=== PATIENT | female | born 1960 | race African-American/Black ===

== ENCOUNTER → 2021-05-25 | Outpatient (CLI) | payer MEDICARE ==
--- NOTE | 2021-05-25 16:25 | BD ---
EXAMINATION TYPE: Axial Bone Density DATE OF EXAM: 05/25/2021 COMPARISON: NONE CLINICAL HISTORY: 60 YR OLD FEMALE.....ICD-10.CODE: Z78.0 MENOPAUSAL. Height: 63.2 Weight: 150 FRAX RISK QUESTIONS: Glucocorticoids (More than 3mos): YES (Ex: prednisone, prednisolone, methylprednisolone, dexamethasone, and hydrocortisone). Rheumatoid Arthritis: YES Current Tobacco Use: YES RISK FACTORS HISTORY OF: Diet low in dairy products/other sources of calcium: YES Postmenopausal woman: YES, AT ABOUT 52 Hyperparathyroidism: NO Adrenal Insufficiency: NO MEDICATIONS: Prednisone or other steroids: YES, DAILY, FOR ABOUT 8 YRS Additional Medications: COLON CA, CHEMO TREATMENT, VIT D IN HER MULTIVITAMIN Additional History: COLON CA, RA, EXAM MEASUREMENTS: Bone mineral densitometry was performed using the [employer] System. Bone mineral density as measured about the Lumbar spine is: ----- L1-L4(G/cm2): 1.334 T Score Values are as follows: ----- L1: 0.7 ----- L2: 0.6 ----- L3: 1.6 ----- L4: 1.8 ----- L1-L4: 1.3 Bone mineral density FIRST DEXA SCAN.....BASELINE STUDY Bone mineral density about the R hip (g/cm2): 0.959 Bone mineral density about the L hip (g/cm2): 0.936 T Score values are as follows: -----R Neck: 0.4 -----L Neck: -0.2 -----R Total: -0.4 -----L Total: -0.6 Bone mineral density BASELINE STUDY FRAX%s: THERE IS A 5.7% CHANCE FOR A MAJOR OSTEOPOROTIC FX AND A 0.3% FOR HIP....PROBABILITY FOR FX IN 10 YRS TIME IMPRESSION: Normal (Values between +1 and -1 indicate normal bone mass). Consider repeating this study in 5 year s or sooner if there is some new clinical indication. NOTE: T-SCORE=SD OF THE YOUNG ADULT MEAN.
== END | disposition home or self-care (01) ==
LOC: RADBDWWP 09:02
PROVIDERS: ATTEND Family Medicine
DX: Z78.0 Asymptomatic menopausal state (principal)
CPT/HCPCS: 77080

== ENCOUNTER → 2022-03-21 | Outpatient (CLI) | payer MEDICARE ==
--- NOTE | 2022-03-21 13:35 | XR ---
EXAMINATION TYPE: XR chest 2V DATE OF EXAM: 03/21/2022 COMPARISON: NONE TECHNIQUE: PA and lateral views submitted. HISTORY: History of positive TB test FINDINGS: The lungs are clear and there is no pneumothorax, pleural effusion, or focal pneumonia. Cardiomegaly noted. Mild hypertrophic change of the spine. No overt failure. IMPRESSION: 1. Cardiomegaly
== END | disposition home or self-care (01) ==
LOC: RADXRMAIN 13:17
PROVIDERS: ATTEND Family Medicine
DX: Z11.1 Encounter for screening for respiratory tuberculosis (principal); I51.7 Cardiomegaly
CPT/HCPCS: 71046

== ENCOUNTER 2023-07-19 10:09 | Day surgery (SDC) | payer MEDICARE ==
[2023-07-18 12:14] VITALS: BMI 25.0
[~2023-07-19 10:09] MED LIST: LACTATED RINGERS 1,000 ML IV SCH
[2023-07-19] MEDS ORDERED: LACTATED RINGERS 1,000 ML IV ONE (10:32)
[2023-07-19 10:45] VITALS: TEMP 97.1
[2023-07-19] MEDS ORDERED: PROPOFOL 10 MG/ML 20 ML VIAL IV ONE (11:44)
--- NOTE | 2023-07-19 12:04 | P.PCN ---
Date of Procedure: 07/19/23 Procedure(s) Performed: BRIEF HISTORY: Patient is a 62-year-old pleasant -[place] female scheduled for an elective colonoscopy as a part of surveillance of prior history of colon cancer diagnosed in 2010. Last colonoscopy was 4 years ago. PROCEDURE PERFORMED: Colonoscopy. PREOPERATIVE DIAGNOSIS: History of colon cancer in 2010 IV sedation per Anesthesia. PROCEDURE: After informed consent was obtained, the patient, was brought into the endoscopy unit. IV sedation was administered by Anesthesia under continuous monitoring. Digital rectal examination was normal. Initially the Olympus CF-160 flexible video pediatric colonoscope was then inserted in the rectum, gradually advanced into the right colon with moderate to severe difficulty. Careful examination was performed. ileocolic anastomosis was visualized that appeared normal. The cause of the transverse colon, descending colon, sigmoid colon, and rectum appeared normal. Scattered sigmoid diverticulosis. Retroflexion was performed in the rectum and small internal hemorrhoids were seen. The patient tolerated the procedure well. IMPRESSION: Normal-appearing colon from rectum to right colon with ileocolic anastomosis was visualized and appeared normal. Scattered sigmoid diverticulosis. Small internal hemorrhoids. RECOMMENDATIONS: Findings of this examination were discussed with the patient as well as a family. She was advised to have a repeat colonoscopy in 3 years..
[2023-07-19 12:47] VITALS: BP 123/86; PULSE 60; RESP 20
== END 2023-07-19 12:43 | disposition home or self-care (01) ==
LOC: ORWHC2ENDO 10:09
PROVIDERS: ATTEND Internal Medicine Gastroenterology
DX: C18.0 Malignant neoplasm of cecum (principal); K57.30 Diverticulosis of large intestine without perforation or abscess without bleeding; K64.8 Other hemorrhoids; M06.9 Rheumatoid arthritis, unspecified; F17.210 Nicotine dependence, cigarettes, uncomplicated; Z88.5 Allergy status to narcotic agent; Z79.02 Long term (current) use of antithrombotics/antiplatelets; Z79.899 Other long term (current) drug therapy; Z98.890 Other specified postprocedural states; Z85.038 Personal history of other malignant neoplasm of large intestine
CPT/HCPCS: J2704; G0105; 45378

== ENCOUNTER → 2024-03-05 | Outpatient (CLI) | payer MEDICARE ==
--- NOTE | 2024-03-28 20:30 | CTL ---
Site ID synapse default Patient Mahi Haddad ID [id number] Age/Gender: 63Y, F Order # N/A Procedure CT LOW DOSE LUNG CANCER SCREENING Date 03/05/2024 11:35:00 AM EXAMINATION TYPE: CT Low Dose Lung DATE OF EXAM ORDERED: 03/13/2024 HISTORY: Personal history of nicotine dependence, 30 pack-year history, current smoker. Lung cancer s creening CT DLP: 82.[address] CTDI: 2.30 mGy Automated exposure control for dose reduction was used. SCREENING VISIT: First screening visit COMPARISON: No direct comparisons TECHNIQUE: Low dose computed tomography scan was performed through the chest at 1 mm thick sections a nd reconstructed images in multiple planes at 1 mm and [address] DIAGNOSTIC QUALITY: Satisfactory FINDINGS: Nodules: No clinically significant pulmonary nodules. LUNGS: COPD: Severity: None Fibrosis: Severity: None Lymph nodes: None Other findings: None RIGHT PLEURAL SPACE: Effusion: None Calcification: None Thickening: None Pneumothorax: None LEFT PLEURAL SPACE: Effusion: None Calcification: None Thickening: None Pneumothorax: None HEART: Heart Size: Mildly Enlarged Coronary Calcification: Small Pericardial Effusion: None OTHER FINDINGS: Upper abdomen: Multiple cysts identified within the liver with largest visualized measuring up to 6.7 cm within the left hepatic lobe. Bony thorax: None Supraclavicular region: None Other: None IMPRESSION: No clinically significant pulmonary nodules. CT LUNG RAD AND CT CHEST RECOMMENDATION: Lung-Rad 1 Negative: Continue annual screening with LDCT in 12 months. S Modifier (other clinically significant findings): None
== END | disposition home or self-care (01) ==
LOC: RADCTMAIN 11:22
PROVIDERS: ATTEND Family Medicine
DX: Z12.2 Encounter for screening for malignant neoplasm of respiratory organs (principal); F17.210 Nicotine dependence, cigarettes, uncomplicated
CPT/HCPCS: 71271

== ENCOUNTER → 2025-02-18 | Outpatient (CLI) | payer MEDICARE ==
--- NOTE | 2025-02-18 19:33 | MM ---
Reason for Exam: Screening (asymptomatic). Last mammogram was performed 1 year(s) and 10 month(s) ago. Patient History: Menarche at age 13. First Full-Term at age 23. Hysterectomy at age 46. Postmenopausal. Previous chemotherapy at age 50. Maternal grandmother had ovarian cancer. Risk Values: Lisa 5 year model risk: 1.6%. NCI Lifetime model risk: 6.2%. Prior Study Comparison: 04/21/2004 Bilateral Screening Mammogram, [facility]. 05/02/2004 Left Special View Mammogram, [facility]. 11/15/2005 Bilateral Screening Mammogram, [facility]. 04/04/2023 Bilateral Screening Mammogram, Unknown. Tissue Density: There are scattered areas of fibroglandular density. Findings: Analyzed By CAD. Chronic nodularity on both sides. There is no suspicious group of microcalcifications or new suspicious mass in either breast. Overall Assessment: Benign, BI-RAD 2 Management: Screening Mammogram of both breasts in 1 year. . Patient should continue monthly self-breast exams. A clinical breast exam by your physician is recommended on an annual basis. This exam should not preclude additional follow-up of suspicious palpable abnormalities. Note on Lisa scores and lifetime risk: 1. A Lisa score greater than 3% is considered moderate risk. If this is the case, consider specialist referral to assess eligibility for a risk reducing agent. 2. If overall lifetime risk for the development of breast cancer is 20% or higher, the patient may qualify for future screening with alternating mammogram and breast MRI. [facility], , 02/18/2025 7:30 PM. Electronically signed and approved by: Nancy Maxwell M.D. Radiologist
== END | disposition home or self-care (01) ==
LOC: RADMAMWWP 08:46
PROVIDERS: ATTEND Family Medicine
DX: Z12.31 Encounter for screening mammogram for malignant neoplasm of breast (principal); R92.323 Mammographic fibroglandular density, bilateral breasts; Z78.0 Asymptomatic menopausal state; Z80.3 Family history of malignant neoplasm of breast
CPT/HCPCS: 77063; 77067